=== PATIENT | male | born 1975 | race Two or more races ===

== ENCOUNTER 2025-07-01 12:15 | Emergency (ER) | payer OTHER ==
[~2025-07-01] VITALS: Ht 175.3 cm; Wt 92.6 kg
[2025-07-01 13:01] LABS: PLATELET COUNT (AUTO) 306 K/uL (150-450); RED BLOOD CELL COUNT(AUTO) 4.67 MIL/uL (4.5-6.0); RED CELL DISTRIBUTION WIDTH 14.3 % (11.5-15.0); WHITE BLOOD COUNT (AUTO) 6.1 K/uL (4.3-11.0)
[2025-07-01 13:33] LABS: ALCOHOL, BLOOD 431 mg/dL (0-10); ASPARTATE AMINOTRANSFERASE 38 U/L (15-37); CALCIUM, SERUM 8.0 mg/dL (8.5-10.1); CREATININE 1.0 mg/dL (0.6-1.3); SODIUM SERUM 146 mmol/L (136-145); TOTAL PROTEIN, SERUM 7.7 g/dL (6.4-8.2); UREA NITROGEN, BLOOD 10 mg/dL (7-18)
[2025-07-01] MEDS ORDERED: LORAZEPAM 0.5 MG TABLET ONE (18:14)
[2025-07-01] MEDS: LORAZEPAM 1 MG TABLET PO ONE (18:17)
[2025-07-02] MEDS ORDERED: LORAZEPAM 1 MG TABLET ONE ×2 (01:40)
[2025-07-02] MEDS: LORAZEPAM 1 MG TABLET PO ONE (01:45)
[2025-07-02 06:26] VITALS: BP 118/80; TEMP 98; O2SAT 94
== END 2025-07-02 06:28 | disposition home or self-care (01) ==
LOC: ER 12:28
DX: F10.229 Alcohol dependence with intoxication, unspecified (principal); I10 Essential (primary) hypertension; Z79.899 Other long term (current) drug therapy; Y90.3 Blood alcohol level of 60-79 mg/100 ml
CPT/HCPCS: 36415; 80048-TC; 80076-TC; 85025-TC; G0480